=== PATIENT | female | born 1995 | race Caucasian/White ===

== ENCOUNTER 2018-11-23 15:09 | Inpatient (IN) ==
[2018-11-23] MEDS ORDERED: ONDANSETRON 4 MG/2 ML VIAL IV PRN (15:30)
[2018-11-23] MEDS ORDERED: BUTORPHANOL 2 MG/ML VIAL IV PRN (15:30)
[2018-11-23] MEDS ORDERED: MEPERIDINE 50 MG/1 ML VIAL IV PRN (15:30)
[2018-11-23] MEDS ORDERED: DINOPROSTONE VAG GEL 10 MG SYRINGE VAG ONE (15:33)
[2018-11-23 15:50] LABS: Basophils # 0.1 10*3/uL (0.0-0.2); Basophils % 0.3 % (0.0-0.8); Eosinophils # 0.1 10*3/uL (0.0-0.87); Eosinophils % 0.7 % (0.00-10.9); Hematocrit 31.4 VOL% (35.7-47.0); Hemoglobin 9.9 GM/DL (12.0-16.0); Immature Granulocytes % 1.6 %; Immature Granulocytes Absolute 0.27 #; Lymphocytes # 3.4 10*3/uL (1.4-4.0); Mean Corpuscular HGB Conc 31.5 GM/DL (32-36); Mean Corpuscular Volume 90.2 FL (87-102); Mean Platelet Volume 9.9 FL (9.6-12.0); Neutrophils % 72.4 % (38.7-73.9); Platelet Count 368 T/CUMM (130-400); Red Blood Count 3.48 MC/CUMM (3.8-5.5); Red Cell Distribution Width 15.6 % (9.3-17.3); White Blood Count 16.9 T/CUMM (4-12)
[2018-11-23 16:08] LABS: INR 0.9
[2018-11-23 16:25] LABS: Albumin 2.6 G/DL (3.4-5.0); Bilirubin,Total 0.8 MG/DL (0.2-1.0); Calcium 8.9 MG/DL (8.5-10.1); Total Protein 6.8 G/DL (6.4-8.3); Uric Acid 5.6 MG/DL (2.6-6.0)
[2018-11-24] MEDS ORDERED: OXYTOCIN/LR 20 UNIT/1,000 ML BAG IV SCH (02:00)
[2018-11-24] MEDS: LACTATED RINGERS 1,000 ML IV SCH ×2 (02:05→13:28)
[2018-11-24] MEDS ORDERED: DINOPROSTONE VAG GEL 10 MG SYRINGE VAG ONE ×3 (08:22→15:00)
[2018-11-24] MEDS: LABETALOL 200 MG TABLET PO SCH ×3 (08:32→14:45)
[2018-11-24] MEDS ORDERED: ceFAZolin 3,000 MG in SYRINGE 1 EACH IV ONE (16:58)
[2018-11-24] MEDS ORDERED: FAMOTIDINE 20 MG/2 ML VIAL IV ONE (16:58)
[2018-11-24] MEDS ORDERED: CITRIC ACID/SODIUM CITRATE 30 ML UDCUP PO ONE (16:58)
[2018-11-24] MEDS ORDERED: OXYTOCIN 10 UNIT/ML VIAL IM ONE (16:59)
[2018-11-24] MEDS ORDERED: OXYTOCIN/LR 30 UNIT/1,000 ML BAG IV ONE (16:59)
[2018-11-24] MEDS ORDERED: DEXAMETHASONE 4 MG/1 ML VIAL ONE (17:15)
[2018-11-24] MEDS ORDERED: EPINEPHrine 1 MG/ML VIAL ONE (17:15)
[2018-11-24] MEDS ORDERED: BUPIVACAINE 0.5% 50 ML VIAL ONE (17:15)
[2018-11-24] MEDS ORDERED: OXYTOCIN 10 UNIT/ML VIAL ONE (17:16)
[2018-11-24] MEDS ORDERED: miSOPROStoL 200 MCG TABLET ONE (17:16)
[2018-11-24] MEDS ORDERED: CARBOPROST TROMETHAMINE 250 MCG/ML AMP IM ONE (17:17)
[2018-11-24] MEDS ORDERED: METHYLERGONOVINE 0.2 MG/1 ML AMP ONE (17:17)
[2018-11-24] MEDS ORDERED: MORPHINE 10 MG/10 ML VIAL ONE (18:39)
[2018-11-24] MEDS ORDERED: MAGNESIUM HYDROXIDE SUSP 30 ML UDCUP PO PRN (18:48)
[2018-11-24] MEDS ORDERED: ACETAMINOPHEN 325 MG TABLET PO PRN (18:48)
[2018-11-24] MEDS ORDERED: SIMETHICONE CHEW 80 MG TABLET PO PRN (18:48)
[2018-11-24] MEDS ORDERED: ONDANSETRON 4 MG/2 ML VIAL IV PRN (18:48)
[2018-11-24] MEDS ORDERED: RHO(D) IMMUNE GLOBULIN 300 MCG SYRINGE IM ONE (18:48)
[2018-11-24] MEDS ORDERED: OXYTOCIN/LR 20 UNIT/1,000 ML BAG IV ONE (18:48)
[2018-11-24 18:59] LABS: Cord Arterial Blood HCO3 24.2 MMOL/L
[2018-11-24] MEDS ORDERED: LACTATED RINGERS 1,000 ML IV SCH (19:00)
[2018-11-24 19:02] LABS: Cord Venous Blood HCO3 21.6 MMOL/L; Cord Venous Blood PCO2 37.1 MMHG; Cord Venous Blood PO2 27.9 MMHG
[2018-11-24] MEDS ORDERED: MIDAZOLAM 2 MG/2 ML VIAL ONE (19:02)
[2018-11-24] MEDS ORDERED: fentaNYL 100 MCG/2 ML VIAL ONE (19:02)
[2018-11-24] MEDS ORDERED: PROPOFOL 200 MG/20 ML VIAL IV ONE (19:03)
[2018-11-24] MEDS ORDERED: BUPIVACAINE SPINAL 0.75% 2 ML AMP SPINAL ONE (19:03)
[2018-11-24 19:18] LABS: Apearance,Urine CLEAR (Clear); Bilirubin,Urine Negative (Negative); Blood, Urine Negative (Negative); Glucose,Urine (UA) Negative (Negative); Ketones,Urine Negative (Negative); Nitrite,Urine Negative (Negative); Protein,Urine Negative; RBC,Urine <1 /HPF (0-4); Urine Color Yellow (Yellow); Urine Specific Gravity 1.005 (1.001-1.035); Urine Urobilinogen < 2.0 EU/DL (0.2-1.0); WBC,Urine 5 /HPF (0-6)
[2018-11-24] MEDS: IBUPROFEN 800 MG TABLET PO PRN (20:14)
[2018-11-24] MEDS ORDERED: ceFAZolin 1,000 MG in SYRINGE 1 EACH IV SCH (23:30)
[2018-11-25 05:21] LABS: Basophils % 0.3 % (0.0-0.8); Eosinophils # 0.1 10*3/uL (0.0-0.87); Eosinophils % 0.6 % (0.00-10.9); Hematocrit 29.4 VOL% (35.7-47.0); Hemoglobin 9.3 GM/DL (12.0-16.0); Immature Granulocytes % 0.6 %; Immature Granulocytes Absolute 0.08 #; Lymphocytes # 3.7 10*3/uL (1.4-4.0); Lymphocytes % 25.7 % (21.3-54.2); Mean Corpuscular HGB Conc 31.6 GM/DL (32-36); Mean Corpuscular Volume 89.4 FL (87-102); Mean Platelet Volume 10.5 FL (9.6-12.0); Monocytes % 5.5 % (1.7-12.7); Neutrophils % 67.3 % (38.7-73.9); Platelet Count 334 T/CUMM (130-400); Red Blood Count 3.29 MC/CUMM (3.8-5.5); Red Cell Distribution Width 15.7 % (9.3-17.3); White Blood Count 14.3 T/CUMM (4-12)
[2018-11-25] MEDS: IBUPROFEN 800 MG TABLET PO PRN ×2 (06:21→20:39)
[2018-11-25] MEDS ORDERED: ceFAZolin 1,000 MG in SYRINGE 1 EACH IV SCH (09:30)
[2018-11-25] MEDS: MULTIVITAMIN (PRENATAL) TABLET PO SCH (10:28)
[2018-11-25] MEDS: DOCUSATE SODIUM 100 MG CAPSULE PO SCH ×3 (10:28→20:38)
[2018-11-25 12:32] LABS: Basophils # 0.1 10*3/uL (0.0-0.2); Basophils % 0.4 % (0.0-0.8); Eosinophils # 0.1 10*3/uL (0.0-0.87); Eosinophils % 0.5 % (0.00-10.9); Hematocrit 29.8 VOL% (35.7-47.0); Hemoglobin 9.3 GM/DL (12.0-16.0); Immature Granulocytes % 0.7 %; Immature Granulocytes Absolute 0.09 #; Lymphocytes # 3.2 10*3/uL (1.4-4.0); Lymphocytes % 24.6 % (21.3-54.2); Mean Corpuscular HGB Conc 31.2 GM/DL (32-36); Mean Corpuscular Volume 89.8 FL (87-102); Mean Platelet Volume 9.9 FL (9.6-12.0); Neutrophils % 67.8 % (38.7-73.9); Platelet Count 333 T/CUMM (130-400); Red Blood Count 3.32 MC/CUMM (3.8-5.5); Red Cell Distribution Width 15.6 % (9.3-17.3); White Blood Count 12.8 T/CUMM (4-12)
[2018-11-25] MEDS ORDERED: RHO(D) IMMUNE GLOBULIN 300 MCG SYRINGE IM ONE (18:23)
[2018-11-25] MEDS: METOCLOPRAMIDE 10 MG TABLET PO SCH (20:39)
[2018-11-25] MEDS ORDERED: oxyCODONE/ACETAMINOPHEN 5-325 MG TABLET PO PRN (22:31)
[2018-11-26] MEDS: METOCLOPRAMIDE 10 MG TABLET PO SCH ×2 (04:14→13:18)
[2018-11-26] MEDS ORDERED: MAGNESIUM CITRATE 300 ML BOTTLE PO ONE (06:37)
[2018-11-26] MEDS: IBUPROFEN 800 MG TABLET PO PRN (06:54)
[2018-11-26 08:53] VITALS: BP 145/79
[2018-11-26] MEDS: MULTIVITAMIN (PRENATAL) TABLET PO SCH (09:45)
[2018-11-26] MEDS: DOCUSATE SODIUM 100 MG CAPSULE PO SCH (09:45)
[2018-11-26] MEDS ORDERED: MEASLES/MUMPS/RUBELLA VACCINE 0.5 ML VIAL SUBCUT ONE (13:18)
[2018-11-26] MEDS ORDERED: INFLUENZA VIRUS VACCINE 0.5 ML SYRINGE IM ONE (16:20)
== END 2018-11-26 14:50 | disposition home or self-care (01) | DRG 540 ==
LOC: N.LD 15:09 → N.OB 11-24 22:31
PROVIDERS: ADMIT Obstetrics & Gynecology; ATTEND Obstetrics & Gynecology
PROC: LDCSECT (ICD-10-PCS; 2018-11-24 17:00)